=== PATIENT | female | born 1950 | race Hispanic/Latino ===

== ENCOUNTER → 2018-05-16 | Day surgery (SDC) | payer MEDICARE ==
[2018-05-11 15:45] LABS: BASOPHILS # (AUTO) 0.1 (0.0-0.1); BASOPHILS % 0.7 % (0.0-1.0); EOSINOPHILS # (AUTO) 0.1 (0.0-0.4); EOSINOPHILS % 1.4 % (0.0-6.0); HEMATOCRIT 41.3 % (34.2-44.1); HEMOGLOBIN 13.8 g/dL (12.0-16.0); LYMPHOCYTES % 21.7 % (18.0-39.1); MEAN CORPUSCULAR HEMOGLOBIN 29.6 pg (28-32); MEAN CORPUSCULAR HGB CONC 33.4 g/dL (31-35); MEAN CORPUSCULAR VOLUME 88.4 fL (81-99); MONOCYTES # (AUTO) 0.5 (0.2-0.8); MONOCYTES % 5.3 % (4.4-11.3); NEUTROPHILS # (AUTO) 6.4 (2.1-6.9); NEUTROPHILS % 70.7 % (38.7-80.0); PLATELET COUNT 271 x10e3/uL (140-360); RED BLOOD COUNT 4.67 x10e6/uL (3.6-5.1); RED CELL DISTRIBUTION WIDTH 13.8 % (11.7-14.4)
[~2018-05-16] MED LIST: BALANCED SALT SOLN (OPTH) 15 ML BTL IO ONE; CITALOPRAM HBR20 MG PO; GELATIN SPONGE 12-7MM ONE; HYDRALAZINE HCL25 MG PO; HYDROXYZINE HCL25 MG PO; LEVOCETIRIZINE D5 MG PO; LIDOCAINE 2% /EPINEPHRINE 20 ML SDV INJ ONE; LIDOCAINE HCL 2% LOCAL INJ 5 ML SDV VIAL INJ ONE; MELOXICAM7.5 MG PO; MIDAZOLAM HCL 2 MG/2 ML VIAL ONE; NEOMYCIN/POLYMYXIN/DEX (OPTH) 3.5 GM TUBE ONE; NIFEDIPINE10 MG PO; PROPOFOL IV EMULSION 10 MG/ML 20 ML VIAL ONE; QUETIAPINE FUMA25 MG PO; Z.0.FLAGYL500 MG PO; Z.0.LEVAQUIN500 MG PO; Z.0.PRILOSEC20 MG PO; Z.0.VICODIN 5-5001 E PO; Z.0.XANAX0.25 MG PO
== END | disposition home or self-care (01) ==
LOC: OR 13:24
PROVIDERS: ATTEND Ophthalmology
DX: H02.834 Dermatochalasis of left upper eyelid (principal); H02.831 Dermatochalasis of right upper eyelid; I10 Essential (primary) hypertension; F41.9 Anxiety disorder, unspecified; Z01.812 Encounter for preprocedural laboratory examination
CPT/HCPCS: 15823; 36415; 85025; J2001 ×2; J2250

== ENCOUNTER → 2019-06-21 | Outpatient (CLI) | payer MEDICARE ==
[~2019-06-21] MED LIST changes: -BALANCED SALT SOLN (OPTH) 15 ML BTL IO ONE; -GELATIN SPONGE 12-7MM ONE; -LIDOCAINE 2% /EPINEPHRINE 20 ML SDV INJ ONE; -LIDOCAINE HCL 2% LOCAL INJ 5 ML SDV VIAL INJ ONE; -MIDAZOLAM HCL 2 MG/2 ML VIAL ONE; -NEOMYCIN/POLYMYXIN/DEX (OPTH) 3.5 GM TUBE ONE; -PROPOFOL IV EMULSION 10 MG/ML 20 ML VIAL ONE
--- NOTE | 2019-06-21 12:42 | Diagnostic Imaging Report ---
Left Wrist MRI without contrast. History: Wrist pain. Lateral pain. Pain not responding to conservative management Comparison: None Technique: Multiplanar multisequence MRI of the wrist without contrast. 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 The lunotriquetral ligament is intact. Degeneration and fraying involving the ulnar styloid fibers of the triangular fibrocartilage complex. Small distal radial ulnar joint effusion and mild synovitis. There is neutral ulnar variance. Scattered degenerative change most pronounced in the lunate bone. No acute fracture, dislocation or avascular necrosis. 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 The flexor tendons are intact. Signal intensity within the median nerve is normal. 5 mm ganglion cyst along the palmar aspect of the wrist at the level of the distal radius. There is normal alignment of the wrist. Mild dorsal capsular scarring and synovitis. 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 Degeneration and fraying involving the ulnar styloid fibers of the triangular fibrocartilage complex. Small distal radial ulnar joint effusion and mild synovitis. 5 mm ganglion cyst along the palmar aspect of the wrist at the level of the distal radius. Signed by: Dr. Israel Ho M.D. on 06/21/2019 12:38 PM
== END ==
LOC: MRI 10:08
PROVIDERS: ATTEND Family Medicine
DX: M65.4 Radial styloid tenosynovitis [de Quervain] (principal)